=== PATIENT | female | born 1955 | race Two or more races ===

== ENCOUNTER 2020-01-10 11:00 | Inpatient (IN) | payer OTHER ==
[~2020-01-10] VITALS: Ht 142.2 cm; Wt 52.2 kg
[2020-01-10] MEDS ORDERED: SYNTHROID75 MCG PO (15:31)
[2020-01-10] MEDS ORDERED: EVISTA60 MG PO (15:31)
[2020-01-10] MEDS ORDERED: NOXIFOL-D32500 UNIT PO (15:32)
[2020-01-10] MEDS ORDERED: ATACAND16 MG PO (15:32)
[2020-01-10] MEDS ORDERED: VITAMIN C500 M6 PO (15:32)
[2020-01-13] MEDS ORDERED: VITAMIN C1000 MG PO (11:43)
[2020-01-13] MEDS ORDERED: VITAMIN D3250 MC1 PO (11:47)
[2020-01-17] MEDS ORDERED: ULTRACET PO (13:17)
[2020-01-17] MEDS ORDERED: PEPCID AC20 MG PO (13:17)
== END 2020-01-17 13:42 | disposition home or self-care (01) | DRG 330 ==
LOC: SURH 01-13 10:45 → O/R 01-13 11:00 → SURH 01-13 11:00 → O/R 01-13 11:01 → SURH 01-13 16:16
PROVIDERS: ADMIT Surgery; ATTEND Surgery
PROC: 0DBN4ZZ Excision of Sigmoid Colon, Percutaneous Endoscopic Approach (ICD-10-PCS; 2020-01-13)
PROC: 0DJD8ZZ Inspection of Lower Intestinal Tract, Via Natural or Artificial Opening Endoscopic (ICD-10-PCS; 2020-01-13)
PROC: CB2YYZZ Tomographic (Tomo) Nuclear Medicine Imaging of Respiratory System using Other Radionuclide (ICD-10-PCS; 2020-01-13)
PROC: 0DTP4ZZ Resection of Rectum, Percutaneous Endoscopic Approach (ICD-10-PCS; principal; 2020-01-13 10:45)
DX: K57.30 Diverticulosis of large intestine without perforation or abscess without bleeding (principal); J98.11 Atelectasis; E03.9 Hypothyroidism, unspecified; I11.9 Hypertensive heart disease without heart failure